=== PATIENT | male | born 2000 | race Caucasian/White ===

== ENCOUNTER 2024-02-21 19:46 | Emergency (ER) | payer OTHER ==
[~2024-02-21] VITALS: Ht 190.5 cm; Wt 136.1 kg
== END 2024-02-21 21:02 | disposition home or self-care (01) ==
LOC: ER 19:46
DX: S92.515A Nondisplaced fracture of proximal phalanx of left lesser toe(s), initial encounter for closed fracture (principal); W22.8XXA Striking against or struck by other objects, initial encounter
CPT/HCPCS: 73630; 99283-25